=== PATIENT | male | born 1985 | race Caucasian/White ===

== ENCOUNTER 2017-05-17 11:48 | Emergency (ER) | payer MEDICAID ==
[~2017-05-17] VITALS: Ht 175.3 cm; Wt 79.4 kg
== END 2017-05-17 13:29 | disposition home or self-care (01) ==
LOC: ER 11:48
DX: H01.009 Unspecified blepharitis unspecified eye, unspecified eyelid (principal); F12.10 Cannabis abuse, uncomplicated

== ENCOUNTER 2017-06-19 13:06 | Emergency (ER) | payer MEDICAID, OTHER ==
[~2017-06-19] VITALS: Ht 175.3 cm; Wt 77.1 kg
[2017-06-19 13:12] VITALS: BP 136/91
== END 2017-06-19 14:08 | disposition home or self-care (01) ==
LOC: ER 13:10
DX: H00.025 Hordeolum internum left lower eyelid (principal); F17.210 Nicotine dependence, cigarettes, uncomplicated

== ENCOUNTER 2018-06-04 09:39 | Emergency (ER) | payer OTHER ==
[~2018-06-04] VITALS: Ht 175.3 cm; Wt 72.6 kg
[2018-06-04] MEDS ORDERED: SODIUM CHLORIDE 0.9% 1,000 ML IV ONE ×3 (09:44→12:17)
[2018-06-04 09:53] VITALS: BP 143/96
[2018-06-04] MEDS ORDERED: cefTRIAXone 1GM/10ml IVPUSH 10 ML IV ONE (10:45)
[2018-06-04 10:58] LABS: Basophils # (auto) 0 uL; Basophils % (auto) 0.5 % (0.0-2.0); Eosinophils # (auto) 0 uL; Eosinophils % (auto) 0.5 % (0.0-7.0); Hematocrit 47.3 % (41.0-53.0); Lymphocytes # (auto) 2.8 uL; Lymphocytes % (auto) 31.6 % (10.0-50.0); Mean Corpuscular Hemoglobin 30.3 pg (28.0-32.0); Mean Corpuscular Hgb Conc. 33.9 g/dL (32.0-36.0); Mean Corpuscular Volume 89.6 fL (80.0-100.0); Monocytes # (auto) 1.1 uL; Monocytes % (auto) 12.8 % (0.0-12.0); Neutrophils # (auto) 4.8 uL; Neutrophils % (auto) 54.6 % (37.0-80.0); Platelet Count (auto) 270 10^3/uL (140-450); Red Blood Cells 5.29 10^6/uL (4.5-5.90); Red Cell Distribution Width 13.2 % (11.8-14.3); White Blood Cell 8.8 10^3/uL (4.4-10.8)
[2018-06-04 11:25] LABS: Alanine Aminotransferase 60 U/L (16-61); Alkaline Phosphatase 90 U/L (45-117); Anion Gap 11 (5-15); Aspartate Aminotransferase 62 U/L (15-37); BUN/Creatinine Ratio 21.8; Bilirubin, Total 1.1 mg/dL (0.2-1.0); Blood Urea Nitrogen 24 mg/dL (7-18); Calcium 8.9 mg/dL (8.5-10.1); Carbon Dioxide 21 mmol/L (21-32); Chloride 103 mmol/L (98-107); GFR African American 100 mL/min; GFR Non-African American 82 mL/min; Glucose 110 mg/dL (74-106); Potassium 3.9 mmol/L (3.5-5.1); Sodium 135 mmol/L (136-145); Total Protein 8.4 g/dL (6.4-8.2)
[2018-06-04] MEDS ORDERED: ACETAMINOPHEN 500 MG TAB PO ONE (12:30)
== END 2018-06-04 12:30 | disposition home or self-care (01) ==
LOC: EDBD 09:39 → ER 09:39
DX: S00.81XA Abrasion of other part of head, initial encounter (principal); B99.9 Unspecified infectious disease; F12.10 Cannabis abuse, uncomplicated; F15.10 Other stimulant abuse, uncomplicated; X58.XXXA Exposure to other specified factors, initial encounter; Y93.89 Activity, other specified; Y99.8 Other external cause status; Y92.89 Other specified places as the place of occurrence of the external cause
CPT/HCPCS: 36415; 70450; 71046; 80053; 83735; 84484; 85025; 93005; 96374; 99285; J0696; J7030

== ENCOUNTER 2018-07-29 12:30 | Emergency (ER) | payer MEDICAID, OTHER ==
[~2018-07-29] VITALS: Ht 175.3 cm; Wt 72.6 kg
[2018-07-29 12:52] VITALS: BP 137/79
== END 2018-07-29 17:31 | disposition home or self-care (01) ==
LOC: ER 12:30
DX: S33.5XXA Sprain of ligaments of lumbar spine, initial encounter (principal); S50.01XA Contusion of right elbow, initial encounter; S80.02XA Contusion of left knee, initial encounter; S80.01XA Contusion of right knee, initial encounter; F12.10 Cannabis abuse, uncomplicated; F15.10 Other stimulant abuse, uncomplicated; V41 Car occupant injured in collision with pedal cycle; Y93.89 Activity, other specified; Y99.8 Other external cause status; Y92.89 Other specified places as the place of occurrence of the external cause
CPT/HCPCS: 72040; 72100; 72125; 73080; 73562

== ENCOUNTER 2019-02-27 07:16 | Emergency (ER) | payer MEDICAID ==
[~2019-02-27] VITALS: Ht 175.3 cm; Wt 74.8 kg
[2019-02-27 07:38] VITALS: BP 134/78
== END 2019-02-27 07:50 | disposition home or self-care (01) ==
LOC: ER 07:16
DX: L02.413 Cutaneous abscess of right upper limb (principal); F12.10 Cannabis abuse, uncomplicated; F15.10 Other stimulant abuse, uncomplicated

== ENCOUNTER 2019-03-28 02:02 | Emergency (ER) | payer MEDICAID ==
[~2019-03-28] VITALS: Ht 175.3 cm; Wt 73.0 kg
[2019-03-28 04:08] VITALS: BP 122/87
== END 2019-03-28 07:04 | disposition left against medical advice (07) ==
LOC: ER 02:03
DX: S81.851D Open bite, right lower leg, subsequent encounter (principal); Z53.21 Procedure and treatment not carried out due to patient leaving prior to being seen by health care provider

== ENCOUNTER 2019-10-20 22:34 | Emergency (ER) | payer MEDICAID ==
[~2019-10-20] VITALS: Ht 175.3 cm; Wt 72.6 kg
[2019-10-20 23:00] VITALS: BP 139/88
== END 2019-10-21 00:15 | disposition left against medical advice (07) ==
LOC: ER 22:37
DX: M25.512 Pain in left shoulder (principal); Z53.21 Procedure and treatment not carried out due to patient leaving prior to being seen by health care provider; V29.9XXA Motorcycle rider (driver) (passenger) injured in unspecified traffic accident, initial encounter; Y93.89 Activity, other specified; Y92.89 Other specified places as the place of occurrence of the external cause; Y99.8 Other external cause status
CPT/HCPCS: 73000

== ENCOUNTER 2020-01-01 21:53 | Emergency (ER) | payer MEDICAID ==
[~2020-01-01] VITALS: Ht 175.3 cm; Wt 77.1 kg
[2020-01-01 22:40] VITALS: BP 127/127
== END 2020-01-02 00:05 | disposition left against medical advice (07) ==
LOC: ER 21:54
DX: R51 Headache (principal); Z53.21 Procedure and treatment not carried out due to patient leaving prior to being seen by health care provider

== ENCOUNTER 2020-02-04 11:57 | Emergency (ER) | payer MEDICAID ==
[~2020-02-04] VITALS: Ht 175.3 cm; Wt 72.6 kg
[2020-02-04 12:25] VITALS: BP 145/96
[2020-02-04] MEDS ORDERED: ACETAMINOPHEN/CODEINE#3 (300/30mg) TAB PO ONE (13:45)
== END 2020-02-04 13:49 | disposition home or self-care (01) ==
LOC: ER 11:57
DX: L01.00 Impetigo, unspecified (principal); F17.210 Nicotine dependence, cigarettes, uncomplicated

== ENCOUNTER 2020-06-30 05:07 | Emergency (ER) | payer MEDICAID ==
[~2020-06-30] VITALS: Ht 175.3 cm; Wt 77.1 kg
[2020-06-30 05:24] VITALS: BP 142/97
[2020-06-30 06:57] LABS: Basophils # (auto) 0 10 ^3/uL (0-0.2); Basophils % (auto) 0.5 % (0.0-2.0); Eosinophils # (auto) 0 10 ^3/uL (0-0.8); Eosinophils % (auto) 0.4 % (0.0-7.0); Hematocrit 42.7 % (41.0-53.0); Hemoglobin 14.4 g/dL (13.5-17.5); Lymphocytes # (auto) 1.7 10 ^3/uL (0.4-5.4); Mean Corpuscular Hemoglobin 30.7 pg (28.0-32.0); Mean Corpuscular Hgb Conc. 33.8 g/dL (32.0-36.0); Mean Corpuscular Volume 90.9 fL (80.0-100.0); Monocytes # (auto) 1.1 10 ^3/uL (0-1.3); Monocytes % (auto) 13.2 % (0.0-12.0); Neutrophils # (auto) 5.2 10 ^3/uL (1.6-8.6); Neutrophils % (auto) 64.9 % (37.0-80.0); Nucleated Red Blood Cells % 0.1 %; Platelet Count (auto) 235 10^3/uL (140-450); Red Blood Cells 4.69 10^6/uL (4.5-5.90); Red Cell Distribution Width 13.8 % (11.8-14.3)
[2020-06-30 07:08] LABS: Anion Gap 7 (5-15); Blood Alcohol < 3.0 mg/dL (0-5); Blood Urea Nitrogen 29 mg/dL (7-18); Calcium 8.9 mg/dL (8.5-10.1); Carbon Dioxide 25 mmol/L (21-32); Chloride 103 mmol/L (98-107); Glucose 80 mg/dL (74-106); Magnesium 2.6 mg/dL (1.6-2.6); Potassium 3.7 mmol/L (3.5-5.1); Sodium 135 mmol/L (136-145)
[2020-06-30 07:09] LABS: Salicylate < 1.7 mg/dL (2.8-20.0)
[2020-06-30 07:11] LABS: Alanine Aminotransferase 36 U/L (16-61); Alkaline Phosphatase 62 U/L (45-117); Aspartate Aminotransferase 37 U/L (15-37); BUN/Creatinine Ratio 27.1; Bilirubin, Total 1.1 mg/dL (0.2-1.0); GFR African American 102 mL/min; GFR Non-African American 84 mL/min; Total Protein 7.9 g/dL (6.4-8.2)
[2020-06-30 07:21] LABS: Acetaminophen < 2.0 ug/mL (10-30)
== END 2020-06-30 06:54 | disposition left against medical advice (07) ==
LOC: EDBD 05:07 → ER 05:07
DX: T39.311A Poisoning by propionic acid derivatives, accidental (unintentional), initial encounter (principal); Z53.21 Procedure and treatment not carried out due to patient leaving prior to being seen by health care provider; Y92.89 Other specified places as the place of occurrence of the external cause
CPT/HCPCS: 36415; 80053; 80320; 80329; 83735; 85025

== ENCOUNTER 2020-07-01 20:29 | Emergency (ER) | payer MEDICAID ==
[~2020-07-01] VITALS: Ht 177.8 cm; Wt 77.1 kg
[2020-07-01 20:35] VITALS: BP 154/96
== END 2020-07-02 | disposition left against medical advice (07) ==
LOC: EDBD 20:29 → ER 20:36
DX: F15.93 Other stimulant use, unspecified with withdrawal (principal); Z53.21 Procedure and treatment not carried out due to patient leaving prior to being seen by health care provider

== ENCOUNTER → 2022-08-18 | Outpatient (CLI) | payer MEDICAID ==
[2022-08-18 10:01] LABS: Urine Bacteria NONE SEEN /hpf (None Seen); Urine Blood Negative /uL (Negative); Urine Mucus FEW (None Seen); Urine Specific Gravity 1.023 (1.001-1.035); Urine WBC 2 /hpf (0 - 3)
[2022-08-18 10:05] LABS: Basophils # (auto) 0 10 ^3/uL (0-0.2); Basophils % (auto) 0.5 % (0.0-2.0); Eosinophils # (auto) 0.1 10 ^3/uL (0-0.8); Eosinophils % (auto) 1.4 % (0.0-7.0); Hematocrit 46.7 % (41.0-53.0); Hemoglobin 16.2 g/dL (13.5-17.5); Lymphocytes # (auto) 2.1 10 ^3/uL (0.4-5.4); Lymphocytes % (auto) 22.1 % (10.0-50.0); Mean Corpuscular Hemoglobin 30.6 pg (28.0-32.0); Mean Corpuscular Hgb Conc. 34.6 g/dL (32.0-36.0); Mean Corpuscular Volume 88.5 fL (80.0-100.0); Monocytes # (auto) 0.7 10 ^3/uL (0-1.3); Monocytes % (auto) 7.8 % (0.0-12.0); Neutrophils # (auto) 6.6 10 ^3/uL (1.6-8.6); Neutrophils % (auto) 68.2 % (37.0-80.0); Red Blood Cells 5.28 10^6/uL (4.5-5.90); Red Cell Distribution Width 12.5 % (11.8-14.3); White Blood Cell 9.6 10^3/uL (4.4-10.8)
[2022-08-18 10:31] LABS: Albumin 3.4 g/dL (3.4-5.0); Calcium 9.1 mg/dL (8.5-10.1); Potassium 4.6 mmol/L (3.5-5.1)
[2022-08-18 10:36] LABS: BUN/Creatinine Ratio 17.4; Bilirubin, Total 0.6 mg/dL (0.2-1.0); Total Protein 7.2 g/dL (6.4-8.2)
== END | disposition home or self-care (01) ==
LOC: LAB 09:38
PROVIDERS: ATTEND Internal Medicine
DX: Z00.00 Encounter for general adult medical examination without abnormal findings (principal); M25.551 Pain in right hip
CPT/HCPCS: 36415; 80053; 80061; 81001; 85025; 85652